=== PATIENT | female | born 1990 | race American Indian/Alaskan Native ===

== ENCOUNTER 2021-11-18 09:24 | Outpatient (CLI) | payer SELFPAY ==
[2021-11-18 10:00] VITALS: BP 110/68
[2021-11-18 10:34] LABS: Bacteria,Urine 1+ /HPF (Negative); Bilirubin,Urine NEG (Negative); Blood,Urine NEG (Negative); Color,Urine Yellow (Yellow); Mucus,Urine 1+ /HPF
[2021-11-18] MEDS ORDERED: LACTATED RINGERS 500 ML IV ONE (11:00)
== END 2021-11-18 12:22 | disposition home or self-care (01) ==
LOC: TRG 09:24 → APU 09:26 → TRG 12:22
PROVIDERS: ATTEND Obstetrics & Gynecology
DX: O26.853 Spotting complicating pregnancy, third trimester (principal); O99.013 Anemia complicating pregnancy, third trimester; D64.9 Anemia, unspecified; Z3A.33 33 weeks gestation of pregnancy
CPT/HCPCS: 59025; 81001; 96360

== ENCOUNTER 2021-12-19 00:24 | Outpatient (CLI) | payer SELFPAY ==
[2021-12-19 00:36] VITALS: BP 107/56
[2021-12-19] MEDS ORDERED: ACETAMINOPHEN 500 MG TAB PO NR (02:02)
== END 2021-12-19 02:13 | disposition home or self-care (01) ==
LOC: TRG 00:24 → APU 00:26 → TRG 02:13
PROVIDERS: ATTEND Obstetrics & Gynecology
DX: O47.1 False labor at or after 37 completed weeks of gestation (principal); Z3A.37 37 weeks gestation of pregnancy
CPT/HCPCS: 59025

== ENCOUNTER 2022-01-05 11:23 | Inpatient (IN) | payer SELFPAY ==
[2022-01-05] MEDS ORDERED: OXYTOCIN 10 UNIT/1 ML INJ IM PRN (12:56)
[2022-01-05] MEDS ORDERED: CARBOPROST TROMETHAMINE 250 MCG/1 ML INJ IM PRN (12:56)
[2022-01-05] MEDS ORDERED: TERBUTALINE 1 MG/1 ML INJ SUB-Q PRN (12:56)
[2022-01-05] MEDS ORDERED: LOPERAMIDE 2 MG CAP PO PRN (12:56)
[2022-01-05] MEDS ORDERED: LIDOCAINE (2%) 20 MG/1 ML VIAL 20 ML MDV INFILTRATI ONE (12:56)
[2022-01-05] MEDS ORDERED: METHYLERGONOVINE MALEATE 0.2 MG/ML VIAL IM PRN (12:56)
[2022-01-05] MEDS ORDERED: fentaNYL 100 MCG/2 ML INJ IV PRN (12:56)
[2022-01-05] MEDS ORDERED: BUTORPHANOL 2 MG/1 ML INJ IV PRN ×2 (12:56)
[2022-01-05] MEDS ORDERED: miSOPROStol 200 MCG TAB PR PRN (12:56)
[2022-01-05] MEDS ORDERED: ACETAMINOPHEN 325 MG TAB PO PRN (12:56)
[2022-01-05] MEDS ORDERED: MINERAL OIL 30 ML ORAL LIQD PO PRN (12:56)
[2022-01-05] MEDS ORDERED: ePHEDrine SULFATE 50 MG/1 ML INJ IV PRN (12:56)
[2022-01-05] MEDS ORDERED: OXYTOCIN DRIP 30 UNITS/500 ML BAG IV SCH ×2 (13:00)
--- NOTE | 2022-01-05 13:17 | History and Physical Report ---
History of Present Illness Date of examination: 01/05/22 Date of admission: 01/05/2022 Chief complaint: "My water broke" History of present illness: 31 y/o presents to [facility] @ 40.5 wks with c/o SROM with cl fluid on 01/04/2022 @ 1545. She denies VB and admits to active FM. Pt has not had any pnc. She denies any complaints and states her preg has been uncomplicated. Pt reports 4 uncomplicated vag deliveries. Med/surgical hx unremarkable. Family hx of DM and cancer. Pt was found to be grossly ruptured and in labor. She was admitted to L&D for delivery. Past History Past Medical History: no pertinent history Past Surgical History: no surgical history Family/Genetic History: diabetes, cancer Social history: single, full code - Obstetrical History Expected Date of Delivery: 12/31/21 Actual Gestation: 40 Week(s) 5 Day(s) : 6 Para: 4 Hx # Term Pregnancies: 4 Number of Pregnancies: 0 Spontaneous Abortions: 1 Number of Living Children: 4 Medications and Allergies Allergies Allergy/AdvReac Type Severity Reaction Status Date / Time No Known Allergies Allergy Unverified 11/18/21 09:49 Active Meds: Active Medications Acetaminophen (Acetaminophen 325 Mg Tab) 650 mg PO Q4H PRN PRN Reason: Pain, Mild (1-3) Butorphanol Tartrate (Butorphanol 2 Mg/1 Ml Inj) 2 mg IV Q2H PRN PRN Reason: Pain , Severe (7-10) Butorphanol Tartrate (Butorphanol 2 Mg/1 Ml Inj) 1 mg IV Q2H PRN PRN Reason: Pain, Moderate(4-6) LABOR PAIN Carboprost Tromethamine (Carboprost Tromethamine 250 Mcg/1 Ml Inj) 250 mcg IM ONCE PRN PRN Reason: Uterine Bleeding Ephedrine Sulfate (Ephedrine Sulfate 50 Mg/1 Ml Inj) 10 mg IV Q2M PRN PRN Reason: Hypotension Fentanyl (Fentanyl 100 Mcg/2 Ml Inj) 100 mcg IV Q2H PRN PRN Reason: Pain,Severe (7-10) LABOR PAIN Oxytocin/Sodium Chloride (Pitocin/Ns 30 Unit/500ml) 30 units in 500 mls @ 2 mls/hr IV TITR SOLOMON; Protocol Lactated Ringer's (Lactated Ringers) 1,000 mls @ 125 mls/hr IV DIRECT SOLOMON Oxytocin/Sodium Chloride (Pitocin/Ns 30 Unit/500ml) 30 units in 500 mls @ 40 mls/hr IV TITR SOLOMON; Protocol Ampicillin Sodium (Ampicillin/Ns 2 Gm/100 Ml) 2 gm in 100 mls @ 100 mls/hr IV ONCE ONE; Protocol Stop: 01/05/22 14:59 Ampicillin Sodium (Ampicillin/Ns 1 Gm/50 Ml) 1 gm in 50 mls @ 100 mls/hr IV Q4H SOLOMON; Protocol Lidocaine (Lidocaine (2%) 20 Mg/1 Ml Vial 20 Ml Mdv) 20 ml INFILTRATI ONCE ONE Stop: 01/05/22 12:57 Loperamide HCl (Loperamide 2 Mg Cap) 2 mg PO ONCE PRN PRN Reason: give with Hemabate Methylergonovine Maleate (Methylergonovine Maleate 0.2 Mg/Ml Vial) 0.2 mg IM ONCE PRN PRN Reason: Uterine Bleeding Mineral Oil (Mineral Oil 30 Ml Oral Liqd) 30 ml PO QHS PRN PRN Reason: Constipation Misoprostol (Misoprostol 200 Mcg Tab) 800 mcg NH ONCE PRN PRN Reason: Uterine Bleeding Oxytocin (Oxytocin 10 Unit/1 Ml Inj) 10 unit IM ONCE PRN PRN Reason: Uterine Bleeding Terbutaline Sulfate (Terbutaline 1 Mg/1 Ml Inj) 0.25 mg SUB-Q ONCE PRN PRN Reason: Hyperstimulation/Hypertonicity Review of Systems All systems: negative Eyes: deferred Ears, nose, mouth and throat: deferred Breasts: normal Genitourinary: normal appearance Rectal Exam: normal exam-external/orifice - Vital Signs Vital signs: Vital Signs Pulse BP 100 H 113/69 01/05/22 11:52 01/05/22 11:52 Temp Pulse Resp BP Pulse Ox 100 H 113/69 01/05/22 11:52 01/05/22 11:52 - Physical Exam Breasts: Positive: normal Abdomen: Positive: normal appearance, soft, normal bowel sounds Genitourinary (Female): Positive: normal external genitalia, normal perenium Vulva: both: normal Vagina: Positive: normal moisture Uterus: Positive: enlarged, normal contour, other (gravid) Adnexa: both: normal Anus/Rectum: Positive: normal perianal skin Extremities: Positive: normal - Obstetrical FHR: auscultation normal, category 1 Uterine Contraction Monitor Mode: External Cervical Dilatation: 4 (per nurse) Cervical Effacement Percentage: 70 station: -2 Uterine Contraction Pattern: Irregular Uterine Tone Measurement Phase: Resting Uterine Contraction Intensity: Mild Results All other labs normal. Assessment and Plan A: IUP@ 40.5 wks SROM (01/04/2022 CL @ 1545) No PNC GBS unknown P: Admit to L&D Continuous monitoring GBS protocal Pain med/ Epidural prn Obtain panel with UDS Anticipate - Patient Problems (1) Supervision of normal IUP (intrauterine ) in multigravida Current Visit: Yes Status: Acute
[2022-01-05] MEDS ORDERED: AMPICILLIN/NS 2 GM/100 ML 2 GM/100 ML BAG IV ONE (14:00)
[2022-01-05] MEDS: LACTATED RINGERS 1,000 ML IV SCH ×2 (15:07→23:22)
[2022-01-05 15:32] LABS: Hemoglobin 10.8 gm/dl (10.1-14.3); Mean Corpuscular HGB Conc 35 % (30-34); Mean Corpuscular Volume 90 fl (79-97); Platelet Count 197 K/mm3 (140-440); Red Blood Count 3.46 M/mm3 (3.65-5.03)
[2022-01-05 15:59] LABS: Hepatitis C Virus Antibody Non-Reactive (NonReactive)
[2022-01-05 17:22] LABS: Total Cells Counted 100
[2022-01-05 17:23] LABS: Anisocytosis Few; Hypochromasia Few
[2022-01-05] MEDS: AMPICILLIN/NS 1 GM/50 ML 1 GM/50 ML BAG IV SCH ×2 (19:00→23:21)
[2022-01-05] MEDS ORDERED: NALOXONE 2 MG/2 ML INJ IV PRN (20:59)
--- NOTE | 2022-01-05 20:59 | Anesthesia Consultation ---
Anesthesia Consult and Med Hx Date of service: 01/05/22 - Airway Anesthetic Teeth Evaluation: Poor ROM Head & Neck: Adequate Mental/Hyoid Distance: Adequate Mallampati Class: Class II Intubation Access Assessment: Probably Good - Pulmonary Exam CTA: Yes - Cardiac Exam Cardiac Exam: RRR - Pre-Operative Health Status ASA Pre-Surgery Classification: ASA2 Proposed Anesthetic Plan: Epidural - Pulmonary Hx Smoking: No Hx Asthma: No Hx Respiratory Symptoms: No SOB: No - Cardiovascular System Hx Hypertension: No - Central Nervous System Hx Neuromuscular Disorder: No Hx Seizures: No Hx Psychiatric Problems: No - Endocrine Hx Renal Disease: No Hx Hypothyroidism: No Hx Hyperthyroidism: No - Hematic Hx Anemia: No Hx Sickle Cell Disease: No - Other Systems Hx Alcohol Use: No Hx Substance Use: No Hx Obesity: Yes
[2022-01-05] MEDS: ePHEDrine SULFATE 50 MG/1 ML INJ IV PRN ×3 (21:42→22:17)
--- NOTE | 2022-01-05 21:42 | Progress Note ---
Labor Epidural - Labor Epidural Start Time: 21:05 Stop Time: 21:28 Performed by:: BIANCA LIZARRAGA Procedure: Patient is requesting epidural for labor pain. H&P and labs reviewed. Procedure explained, questions answered, consent obtained. Patient placed in sitting position with monitors applied. Timeout performed immediately before start of procedure. Prep/drape in usual sterile fashion. Skin localized 3 mL 1% lidocaine at L[3]-L[4] interspace. 17-gauge Touhy epidural needle advanced to STEPHANIE with saline at [8] cm. No blood/CSF noted via epidural needle. Epidural catheter advanced to [12] cm. Negative aspiration for blood and CSF via catheter, negative response to test dose 3 ml 1.5% lidocaine w/ Epi. Sterile dressing applied followed by tape reinforcement. Patient tolerated procedure well. No immediate complications noted.
[2022-01-05] MEDS: fentaNYL-BUPIV 2 MCG/ML-0.125% 200 MCG/100 ML BAG EPIDURAL SCH (23:34)
[2022-01-06] MEDS: AMPICILLIN/NS 1 GM/50 ML 1 GM/50 ML BAG IV SCH ×3 (04:40→14:49)
[2022-01-06] MEDS: LACTATED RINGERS 1,000 ML IV SCH ×2 (06:57→14:48)
[2022-01-06] MEDS: fentaNYL-BUPIV 2 MCG/ML-0.125% 200 MCG/100 ML BAG EPIDURAL SCH ×2 (07:35→14:44)
[2022-01-06] MEDS ORDERED: BUPIVACAINE/PF (0.25%) 2.5 MG/ML 10 ML VIAL INFILTRATI ONE (12:31)
--- NOTE | 2022-01-06 17:16 | Procedure Note ---
OB Delivery Note - Delivery Date of Delivery: 01/06/22 Surgeon: SHAKILA FAN Estimated blood loss: 200cc - Vaginal Delivery presentation: vertex Delivery position: OA Intrapartum events: PROM->1hr before delivery, prolonged active phase, shoulder dystocia Delivery induction: none Delivery augmentation: pitocin Delivery monitor: external FHT, external uterine, internal FHT, internal uterine Route of delivery: Delivery placenta: spontaneous Delivery cord: 3 umbilical vessels Episiotomy: none Delivery laceration: none Anesthesia: epidural Delivery comments: SAVD of viable male infant, protracted labor over 8hrs at 8cm, pt manually completed and pt pushed effectively with epidural in progress. Pt when asked by me if she had vacuum delivery in the past and she answered yes at this time. Pt sustained shoulder dystocia that was relieved with Naomy position and suprapubic pressure on the left by nurse initially that was ineffective, then by me to achieve delivery. Clear amniotic fluid during labor and meconium noted after baby was delivered and pt remained afebrile and received IV antibiotics for the duration of labor, more than 4doses. Pt sustained no lacerations to vagina nor cervical when visualized by me. Placenta delivered spontaneously and complete with 3 vessel cord. Bimanual done with fundus firm then a gush of blood occured. Cytotec 800mcg given per rectum with multiparous and protracted labor. Mom and baby stable. PATRICIA nurse present for delivery. Will send urine drug screen per PATRICIA nurse request. - A at 1 minute: 8 at 5 minutes: 9 Infant Gender: Male (clear fluid with terminal meconium; wt 3265g)
--- NOTE | 2022-01-06 18:19 | Post Anesthesia Evaluation ---
- Post Anesthesia Evaluation Patient Participated: Yes Airway Patent: Yes Stable Respiratory Function: Yes Nausea/Vomiting: No Temp > 96.8F: Yes Pain Manageable: Yes Adequeate Hydration: Yes Anesthesia Complications: No Block Receding Appropriately: Yes Patient on Ventilator: No
[2022-01-06 18:38] LABS: Color,Urine Red (Yellow); RBC,Urine > 182.0 /HPF (0.0-6.0)
[2022-01-06 18:41] LABS: Bilirubin,Urine Color Interference (Negative)
[2022-01-06 18:42] LABS: Blood,Urine TNR (Negative); PH,Urine TNR (5.0-7.0); Protein,Urine TNR mg/dL (Negative); Urobilinogen,Urine TNR mg/dL (<2.0)
[2022-01-06] MEDS ORDERED: PROMETHAZINE 25 MG TAB PO PRN (19:02)
[2022-01-06] MEDS ORDERED: WITCH HAZEL/ GLYCERIN PAD TP PRN (19:02)
[2022-01-06] MEDS ORDERED: PROMETHAZINE 25 MG RECT SUPP PR PRN (19:02)
[2022-01-06] MEDS ORDERED: ACETAMINOPHEN 325 MG TAB PO PRN (19:02)
[2022-01-06] MEDS ORDERED: LANOLIN/ZINC/DIMETHICONE (LANSINOH) 7 GM TP PRN (19:02)
[2022-01-06] MEDS ORDERED: MAGNESIUM HYDROXIDE (MOM) ORAL LIQD UDC PO PRN (19:02)
[2022-01-06] MEDS ORDERED: diphenhydrAMINE 25 MG CAP PO PRN (19:02)
[2022-01-06] MEDS ORDERED: ONDANSETRON 4 MG/2 ML INJ IV PRN (19:02)
[2022-01-06 19:23] LABS: Amphetamine Screen,Urine Negative; Benzodiazepines Screen,Urine Negative; Cannabinoid Screen,Urine Negative; Cocaine Screen,Urine Negative; Methadone Screen,Urine Negative; Opiate Screen,Urine Negative
[2022-01-06] MEDS: IBUPROFEN 600 MG TAB PO SCH (20:27)
[2022-01-07] MEDS: IBUPROFEN 600 MG TAB PO SCH ×4 (03:02→21:10)
[2022-01-07] MEDS: oxyCODONE /ACETAMINOPHEN 5-325MG TAB PO PRN ×2 (04:46→12:41)
[2022-01-07 06:19] LABS: Hematocrit 28.6 % (30.3-42.9); Hemoglobin 9.6 gm/dl (10.1-14.3)
[2022-01-07] MEDS: PRENATAL VIT27-FE FUMARATE-FOLIC ACID VIT TAB PO SCH (10:14)
--- NOTE | 2022-01-07 12:02 | Progress Note ---
Assessment and Plan PPD#1, Asymptomatic anemia doing well, however baby held by peds 1. Routine course 2. May be discharged home tomorrow if pt remains stable. Subjective Date of service: 01/07/22 Principal diagnosis: PPD#1 Interval history: pt has no complaints, pt is breast feeding, pt desires to go home today. pt is voiding and declines pelvic pain. Vag bleed less than a period. Objective - Constitutional Vitals: Vital Signs - 12hr 01/07/22 01/07/22 01/07/22 00:52 05:38 08:00 Temperature 98.0 F 97.8 F Pulse Rate 56 L 52 L Respiratory 18 18 Rate Blood Pressure 103/57 103/56 O2 Sat by Pulse 99 97 Oximetry O2 Sat by Pulse 97 Oximetry [ Bilateral] 01/07/22 08:19 Temperature 98.6 F Pulse Rate 60 Respiratory 18 Rate Blood Pressure 120/68 O2 Sat by Pulse 100 Oximetry O2 Sat by Pulse Oximetry [ Bilateral] General appearance: Present: no acute distress - Neck Neck: normal ROM - Respiratory Respiratory effort: normal - Breasts Breasts: deferred - Cardiovascular Rhythm: regular Extremities: No edema - Gastrointestinal General gastrointestinal: Present: soft, non-tender - Genitourinary Female genitourinary: other (Fundus firm 1cm below umbilicus, non-tender; lochia small ) - Integumentary Integumentary: warm, dry - Labs CBC & Chem 7: 01/07/22 05:48 Labs: Abnormal lab results 01/06/22 01/07/22 Range/Units 17:50 05:48 Hgb 9.6 L (10.1-14.3) gm/dl Hct 28.6 L (30.3-42.9) % Urine WBC (Auto) 17.0 H (0.0-6.0) /HPF Medications & Allergies - Medications Allergies/Adverse Reactions: Allergies No Known Allergies Allergy (Verified 01/06/22 07:29) Home Medications: Home Medications Medication Instructions Recorded Confirmed Last Taken Type Vit-Fe Fumar-FA [ 1 tab PO QDAY 01/06/22 01/06/22 Unknown History Vitamin] Active Medications: Generic Name Dose Route Start Last Admin Trade Name Freq PRN Reason Stop Dose Admin Acetaminophen 650 mg 01/05/22 12:56 Acetaminophen 325 Mg Tab PO Q4H PRN Pain, Mild (1-3) Acetaminophen 650 mg 01/06/22 19:02 Acetaminophen 325 Mg Tab PO Q4H PRN Pain MILD(1-3)/Fever >100.5/PEÑA Bisacodyl 10 mg 01/06/22 19:02 Bisacodyl 10 Mg Rect Supp IL BID PRN Constipation Carboprost Tromethamine 250 mcg 01/05/22 12:56 Carboprost Tromethamine 250 Mcg/1 Ml Inj IM ONCE PRN Uterine Bleeding Diphenhydramine HCl 25 mg 01/06/22 19:02 Diphenhydramine 25 Mg Cap PO Q6H PRN Itching Oxytocin/Sodium Chloride 30 units in 500 mls @ 2 mls/hr 01/05/22 13:00 01/06/22 16:41 Pitocin/Ns 30 Unit/500ml IV 9 mls/hr TITR SOLOMON 9 mls/hr Titration Protocol Lactated Ringer's 1,000 mls @ 125 mls/hr 01/05/22 14:15 01/06/22 14:48 Lactated Ringers IV 125 mls/hr DIRECT SOLOMON Administration Oxytocin/Sodium Chloride 30 units in 500 mls @ 40 mls/hr 01/05/22 13:00 Pitocin/Ns 30 Unit/500ml IV TITR SOLOMON Protocol Ibuprofen 600 mg 01/06/22 20:00 01/07/22 03:02 Ibuprofen 600 Mg Tab PO 600 mg Q6H SOLOMON Administration Loperamide HCl 2 mg 01/05/22 12:56 Loperamide 2 Mg Cap PO ONCE PRN give with Hemabate Magnesium Hydroxide 30 ml 01/06/22 19:02 Magnesium Hydroxide (Mom) Oral Liqd Udc PO HS PRN Constipation Methylergonovine Maleate 0.2 mg 01/05/22 12:56 Methylergonovine Maleate 0.2 Mg/Ml Vial IM ONCE PRN Uterine Bleeding Mineral Oil 30 ml 01/05/22 12:56 01/06/22 16:56 Mineral Oil 30 Ml Oral Liqd PO 30 ml QHS PRN Administration Constipation Multi-Ingredient Ointment 1 applic 01/06/22 19:02 Lanolin/Zinc/Dimethicone (Lansinoh) 7 Gm TP PRN PRN Sore Nipples Multivitamins/Iron/Calcium 1 each 01/07/22 10:00 01/07/22 10:14 [id number] Fumarate-Folic Acid Vit Tab PO 1 each QDAY SOLOMON Administration Ondansetron HCl 4 mg 01/06/22 19:02 Ondansetron 4 Mg/2 Ml Inj IV Q8H PRN Nausea And Vomiting Oxycodone/Acetaminophen 2 tab 01/06/22 19:02 01/07/22 04:46 Oxycodone /Acetaminophen 5-325mg Tab PO 2 tab Q6H PRN Administration Pain, Moderate (4-6) Oxytocin 10 unit 01/05/22 12:56 Oxytocin 10 Unit/1 Ml Inj IM ONCE PRN Uterine Bleeding Promethazine HCl 25 mg 01/06/22 19:02 Promethazine 25 Mg Rect Supp IL Q6H PRN Nausea And Vomiting Promethazine HCl 25 mg 01/06/22 19:02 Promethazine 25 Mg Tab PO Q6H PRN Nausea And Vomiting Sodium Chloride 10 ml 01/06/22 19:02 Sodium Chloride 0.9% 10 Ml Flush Syringe IV PRN SOLOMON Witch Elizabeth/Glycerin 1 each 01/06/22 19:02 Witch Elizabeth/ Glycerin Pad TP PRN PRN Hemorrhoid/cleansing/soothing
[2022-01-07] MEDS ORDERED: FERROUS SULFATE 325 MG TAB PO SCH (12:30)
[2022-01-08] MEDS: IBUPROFEN 600 MG TAB PO SCH ×2 (03:02→09:42)
[2022-01-08] MEDS: PRENATAL VIT27-FE FUMARATE-FOLIC ACID VIT TAB PO SCH (09:42)
--- NOTE | 2022-01-08 10:00 | Progress Note ---
Assessment and Plan A: day 2 S/P . Anemia. Bradycardia (asymptomatic). P: Case management to see patient prior to discharge due to no PNC. EKG prior to discharge. Plan discharge home later today if EKG ok. Subjective - Subjective Date of service: 01/08/22 Principal diagnosis: PPD#2 Interval history: Patient requests discharge home today. Patient reports: appetite normal, voiding normally, pain well controlled, flatus, ambulating normally, no dizzy ambulation, no nauseated Surprise: doing well Objective - Vital Signs Latest vital signs: Vital Signs Temp Pulse Resp BP Pulse Ox Pulse Ox 01/08/22 00:02 98.1 F 53 L 18 101/57 100 01/07/22 21:15 97 01/07/22 16:08 98.0 F 54 L 18 110/73 97 01/07/22 12:47 98.1 F 18 121/67 Intake and Output 01/07/22 01/08/22 01/08/22 23:59 07:59 15:59 Intake Total 480 420 Balance 480 420 Intake: Oral 240 Intake, Free Water 240 420 Other: Total, Intake Amount 240 # Voids Void 1 1 - Exam Cardiovascular: Present: Regular rate, No murmurs Lungs: Present: Clear to auscultation Abdomen: Present: normal appearance, soft. Absent: distention, tenderness, guarding, rigidity Uterus: Present: normal, firm, fundal height below umbilicus. Absent: bogginess, tenderness Extremities: Absent: tenderness
--- NOTE | 2022-01-08 17:06 | Event Note ---
Date: 01/08/22 Patient requests discharge home today. EKG shows sinus rhythm. Discussed with patient discharge instructions and warning signs. Advised patient to continue taking her vitamin and iron supplements at home (Rx for vitamin and iron supplements left on chart for patient). Advised patient to avoid intercourse, lifting, hoiusework. Advised patient to follow up at [facility] office in 1 week. Advised patient to also follow up with PCP. Patient voiced understanding of all instructions.
--- NOTE | 2022-01-08 17:08 | Discharge Summary ---
Providers - Providers Date of Admission: 01/05/22 12:56 Date of discharge: 01/08/22 Attending physician: TEJAS SARABIA MD 01/08/22 09:55 Consult to Case Management [CONS] Routine Services Needed at Discharge: Property And Equipment Clerk Comment:: No care Primary care physician: TEJAS SARABIA MD Hospitalization Reason for admission: rupture of membranes Delivery: Episiotomy: none Other procedures: none complications: none Discharge diagnosis: IUP at term delivered baby: male Pertinent studies: Labs Hospital course: Stable hospital course Condition at discharge: Good Disposition: 01 HOME / SELF CARE / HOMELESS - Discharge Diagnoses (1) Term delivered Status: Acute (2) Anemia Status: Acute Plan - Discharge Medications Prescriptions: Ferrous Sulfate [Iron 325 MG] 325 mg PO BID 30 Days #60 Vit-Fe Fumar-FA [ Vitamin] 1 tab PO QDAY 30 Days #30 tablet - Provider Discharge Summary Activity: routine, no sex for 6 weeks, no heavy lifting 4 weeks, no strenuous exercise Diet: routine Instructions: routine Additional instructions: Continue taking your vitamin and iron supplements at home. Follow up at [facility] in 1 week. Call your doctor immediately for: * Fever > 100.5 * Heavy vaginal bleeding ( >1 pad per hour) * Severe persistent headache * Shortness of breath * Reddened, hot, painful area to leg or breast - Follow up plan Follow up: TAMIKO FULTON CNM [Advanced Practice Nurse] - 7 Days
--- NOTE | 2022-01-08 17:42 | Electrocardiograph Report ---
[facility] Test Date: 2022-01-08 Test Time: 10:22:27 Pat Name: BRIDGETTE LOPEZ Department: Room: [facility] 1 Gender: F Staff Consultant: YULIANA : 1990 Requested By: TAMIKO FULTON Order Number: [id number] Reading MD: Lebron Lala Measurements Intervals Viola Rate: 54 P: 66 DE: 150 QRS: 15 QRSD: 93 T: 30 QT: 402 QTc: 380 Interpretive Statements Sinus bradycardia Low voltage QRS No previous ECG available for comparison Electronically Signed On 01-08-2022 17:41:47 EST by Lebron Lala
[2022-01-08 19:30] VITALS: BP 105/66
== END 2022-01-08 18:40 | disposition home or self-care (01) | DRG 806 ==
LOC: TRG 11:23 → APU 11:24 → LD 12:47 → TRG 12:56 → LD 12:56 → OB 01-06 18:29
PROVIDERS: ADMIT Obstetrics & Gynecology; ATTEND Obstetrics & Gynecology
PROC: 10E0XZZ Delivery of Products of Conception, External Approach (ICD-10-PCS; principal; 2022-01-06)
PROC: 3E0R3BZ Introduction of Anesthetic Agent into Spinal Canal, Percutaneous Approach (ICD-10-PCS; 2022-01-06)
PROC: 00HU33Z Insertion of Infusion Device into Spinal Canal, Percutaneous Approach (ICD-10-PCS; 2022-01-06)
DX: O42.02 Full-term premature rupture of membranes, onset of labor within 24 hours of rupture (principal); O63.9 Long labor, unspecified; Z37.0 Single live birth; Z3A.40 40 weeks gestation of pregnancy; Z20.822 Contact with and (suspected) exposure to COVID-19; O66.0 Obstructed labor due to shoulder dystocia; O90.81 Anemia of the puerperium; O99.893 Other specified diseases and conditions complicating puerperium; R00.1 Bradycardia, unspecified
CPT/HCPCS: 36415; 80307; 81001; 85007; 85014; 85018; 85025; 86592; 86706; 86762; 86803; 86850; 86900; 86901; 87086; 87806; 88307; 93005; 93010; 99211; G0378; J3490; G0463; J0290; J2590; J7120; U0003